=== PATIENT | male | born 1960 | race Two or more races ===

== ENCOUNTER 2023-08-14 06:05 | Day surgery (SDC) | payer BC ==
[~2023-08-14] VITALS: Ht 162.6 cm; Wt 103.9 kg
[~2023-08-14 06:05] MED LIST: ATOR10TA PO; CHOL20007 OR; LOSA100T58 PO; MELO7.5T7 PO; METF-370 PO
[2023-08-14] MEDS ORDERED: IOHEXOL 300 MG/ML 100ML BOTTLE IJ ONE (06:30)
[2023-08-14] MEDS ORDERED: ceFAZolin 2 GM/D5W100ml 100 ML IV ONE (06:42)
[2023-08-14] MEDS ORDERED: SUCCINYLCHOLINE CHLORIDE 20 MG/ML 10ML VIAL IV ONE (06:55)
[2023-08-14] MEDS ORDERED: ROCURONIUM 10MG/ML 10ML VIAL IV ONE (06:55)
[2023-08-14] MEDS ORDERED: fentaNYL CITRATE 100 MCG/2 ML VL ONE (06:57)
[2023-08-14] MEDS ORDERED: SODIUM CHLORIDE LOCK 10 ML ONE (06:58)
[2023-08-14] MEDS ORDERED: KETAMINE 50mg/ML 1ml syringe ONE (06:58)
[2023-08-14] MEDS ORDERED: DexAMETHasone SOD PHOS 10MG/1ML VIAL INJ ONE (06:58)
[2023-08-14] MEDS ORDERED: ONDANSETRON HCL 4 MG/2 ML VIAL ONE (06:58)
[2023-08-14] MEDS ORDERED: MEPERIDINE HCL (50 MG/ML) 1 ML VIAL ONE (06:58)
[2023-08-14] MEDS ORDERED: MIDAZOLAM HCL 2MG/2ML 2ml VIAL (1mg/ml) ONE (06:58)
[2023-08-14] MEDS ORDERED: PROPOFOL 10 MG/ML 20 ML IV ONE (06:58)
[2023-08-14 08:58] VITALS: O2SAT 96
[2023-08-14 09:01] VITALS: TEMP 97.4
[2023-08-14] MEDS ORDERED: HYDROmorphone HCL 2 MG/ML VL/or syr IV PRN (09:15)
[2023-08-14] MEDS ORDERED: MORPHINE SULFATE INJ 2 MG/ml SYRG IV PRN (09:15)
[2023-08-14] MEDS ORDERED: ACCU-CHEK COMFORT CURVE STRIP VI ONE (09:15)
[2023-08-14] MEDS ORDERED: METOCLOPRAMIDE HCL 5MG/ml INJ 2ml VIAL IV PRN (09:15)
[2023-08-14] MEDS ORDERED: KETOROLAC TROMETH 30 MG/ML 1ML VIAL IV ONE (09:15)
[2023-08-14] MEDS: HYDROmorphone HCL 2 MG/ML VL/or syr IV PRN (09:52)
[2023-08-14 12:15] VITALS: BP 169/88; PULSE 96; RESP 20; O2SAT 92
== END 2023-08-14 12:38 | disposition home or self-care (01) ==
LOC: SUR 06:05
PROVIDERS: ATTEND Orthopaedic Surgery
DX: S32.038A Other fracture of third lumbar vertebra, initial encounter for closed fracture (principal); S32.048A Other fracture of fourth lumbar vertebra, initial encounter for closed fracture; X58.XXXA Exposure to other specified factors, initial encounter; Y93.89 Activity, other specified; Y92.89 Other specified places as the place of occurrence of the external cause; Y99.8 Other external cause status; I10 Essential (primary) hypertension; E11.9 Type 2 diabetes mellitus without complications; G47.30 Sleep apnea, unspecified; E78.5 Hyperlipidemia, unspecified; M54.30 Sciatica, unspecified side; M51.34 Other intervertebral disc degeneration, thoracic region; Z79.899 Other long term (current) drug therapy; Z96.642 Presence of left artificial hip joint; Z98.890 Other specified postprocedural states; Z79.84 Long term (current) use of oral hypoglycemic drugs
CPT/HCPCS: 22514; 22515; 72100; 76000; 82962; 86850; 86900; 86901; C1713; J0330; J1100; J1170; J2175; J2250; J2405; J2704; J3010; Q9967

== ENCOUNTER 2024-08-20 09:00 | Emergency (ER) | payer BC ==
[~2024-08-20] VITALS: Ht 177.8 cm; Wt 113.0 kg
[~2024-08-20 09:00] MED LIST changes: +LOSA-535 PO; -LOSA100T58 PO
[2024-08-20] MEDS: ADENOSINE 6 MG/2 ML INJ IV ONE ×2 (09:20→10:51)
[2024-08-20 09:35] LABS: Basophils # (auto) 0 10 ^3/uL (0-0.2); Basophils % (auto) 0.4 % (0.0-2.0); Eosinophils # (auto) 0.1 10 ^3/uL (0-0.8); Eosinophils % (auto) 1.4 % (0.0-7.0); Hematocrit 47.9 % (41.0-53.0); Hemoglobin 15.9 g/dL (13.5-17.5); Lymphocytes # (auto) 2.2 10 ^3/uL (0.4-5.4); Lymphocytes % (auto) 27.3 % (10.0-50.0); Mean Corpuscular Hemoglobin 28.5 pg (28.0-32.0); Mean Corpuscular Hgb Conc. 33.1 g/dL (32.0-36.0); Monocytes # (auto) 0.6 10 ^3/uL (0-1.3); Monocytes % (auto) 7.2 % (0.0-12.0); Neutrophils # (auto) 5.2 10 ^3/uL (1.6-8.6); Neutrophils % (auto) 63.7 % (37.0-80.0); Platelet Count (auto) 219 10^3/uL (140-450); Red Blood Cells 5.57 10^6/uL (4.5-5.90); Red Cell Distribution Width 15.1 % (11.8-14.3); White Blood Cell 8.2 10^3/uL (4.4-10.8)
--- NOTE | 2024-08-20 09:36 | ED.PDOC ---
HPI Comments 64-year-old male with no reported PMHx presents with a chief complaint of A-Fib RVR x 10 minutes prior to arrival. Patient was at a pre-op surgery center when staff noticed that patients BPM was in the high 190s at rest. Patient denies any active chest pain, palpitations, SOB, headache, or nausea at this time. Patient reports that he feels relatively calm, smiling, laughing with EMS crew, and in no apparent distress at this time. Vasovagal maneuver at EMS [facility] side was unsuccessful. Patients EKG shows rate of 192, Wide-QRS Tachycardia, and RBBB. No other symptoms or modifying factors present at this time. Chief Complaint: Palpitations Time Seen by MD: 08:49 Reviewed Notes: Medications, Allergies Allergies: Coded Allergies: NO KNOWN ALLERGIES (Unverified , 08/08/23) Home Meds Reported Medications Cholecalciferol (VITAMIN D3) Unknown Strength Tab, OR, TAB 08/08/23 Metformin Hydrochloride (Metformin Hcl) 500 Mg Tab, 250 MG PO, TAB 24 Meloxicam (Meloxicam) 7.5 Mg Tab, 7.5 MG PO DAILY, TAB 08/08/23 Atorvastatin Calcium (Lipitor) 10 Mg Tab, 10 MG PO DAILY, TAB 08/08/23 Losartan Potassium (Losartan Potassium) 100 Mg Tab, 100 MG PO DAILY, TAB 08/08/23 Information Source: Patient, Emergency Med Personnel Mode of Arrival: EMS Severity: Moderate Timing: Minutes Duration: Since onset Prehospital treatment: 12 Lead EKG Onset: At Rest Cardiac Risk Factors: None PE Risk Factors: None History of: Angioplasty Past Medical History PAST MEDICAL HISTORY: Denies Surgical History: Denies all surgeries Family History Family History: Reviewed,noncontributory to illness Social History Smoker: Non-Smoker Alcohol: Denies ETOH Use Drugs: Denies Drug Use Lives In: Home Constitutional: denies: chills, diaphoresis, fatigue, fever, malaise, sweats, weakness, others EENTM: denies: blurred vision, double vision, ear bleeding, ear discharge, ear drainage, ear pain, ear ringing, eye pain, eye redness, hearing loss, mouth pain, mouth swelling, nasal discharge, nose bleeding, nose congestion, nose pain, photophobia, tearing, throat pain, throat swelling, voice changes, others Respiratory: denies: cough, hemoptysis, orthopnea, SOB at rest, shortness of breath, SOB with excertion, stridor, wheezing, others Cardiovascular: denies: chest pain, dizzy spells, diaphoresis, Dyspnea on exertion, edema, irregular heart beat, left arm pain, lightheadedness, palpitations, PND, syncope, others Gastrointestinal: denies: abdomen distended, abdominal pain, blood streaked bowels, constipated, diarrhea, dysphagia, difficulty swallowing, hematemesis, melena, nausea, poor appetite, poor fluid intake, rectal bleeding, rectal pain, vomiting, others Genitourinary: denies: burning, dysuria, flank pain, frequency, hematuria, incontinence, penile discharge, penile sore, pain, testicle pain, testicle swelling, urgency, others Neurological: denies: dizziness, fainting, headache, left sided numbness, left sided weakness, numbness, paresthesia, pre-existing deficit, right sided numbness, right sided weakness, seizure, speech problems, tingling, tremors, weakness, others Musculoskeletal: denies: back pain, gout, joint pain, joint swelling, muscle pain, muscle stiffness, neck pain, others Integumetry: denies: bruises, change in color, change in hair/nails, dryness, laceration, lesions, lumps, rash, wounds, others Allergic/Immunocompromised: denies: Difficulty Healing, Frequent Infections, Hives, Itching, others Hematologic/Lymphatic: denies: anemia, blood clots, easy bleeding, easy bruising, swollen glands, others Endocrine: denies: excessive hunger, excessive sweating, excessive thirst, excessive urination, flushing, intolerance to cold, intolerance to heat, unexplained weight gain, unexplained weight loss, others Psychiatric: denies: anxiety, bipolar disorder, depression, hopeless, panic disorder, schizophrenia, sleepless, suicidal, others All Other Systems: Reviewed and Negative Physical Exam General Appearance: No Apparent Distress, Obese HEENT: NOT DONE Neck: NOT DONE Respiratory: Chest Non-Tender, Lungs Clear, No Accessory Muscle Use, No Respiratory Distress, Normal Breath Sounds Cardiovascular: Tachycardia Breast Exam: Deferred Gastrointestinal: NOT DONE Genitalia: Deferred Pelvic: Deferred Rectal: Deferred Extremities: No calf tenderness, Normal capillary refill, Normal inspection, Normal range of motion, Non-tender, No pedal edema Neurologic: Alert, operating cost clerk II-XII nml as Tested, No Motor Deficits, Normal Affect, Normal Mood, No Sensory Deficits Cerebellar Function: Normal Reflexes: NOT DONE Skin: Dry, Normal Color Lymphatic: NOT DONE EKG EKG : Pulse Rate (adult): 192 [place]: Normal Cardiac Rhythm: ST Block: RBBB Hypertrophy: None ST: Normal Comments WIDE-QRS Tachycardia Was a procedure done? Was a procedure done?: Yes Sedation Sedation?: No Informed consent obtained: Yes Arterial Puncture Notes Name of procedure: Chemical cardioversion Indication: Atrial fibrillation with rapid ventricular response Description procedure: With the patient was supine position in left arm elevated, 6 mg of adenosine IV x1 followed by saline push he was provided the patient with the immediate cardioversion to normal sinus rhythm. The patient tolerated the procedure well. No complications. No EBL. CP Differential Dx Differential Diagnosis: A-fib, A-Flutter, Anxiety / Panic Attack, Atrial Dysrhythmia, AV Block 1st Degree, AV Block 2nd Degree, AV Block 3rd Degree, Digoxin Toxicity, Electrolyte Disorder, Heart Failure, Hyperthyroidism, Hyperventilation, MAT, Pulmonary Embolus, PVC's, Sinus Tachycardia, Tors[place] Pointes, V-Fib, V-Tach, WPW X-Ray, Labs, Meds, VS Vital Signs Date Time Temp Pulse Resp B/P (MAP) Pulse Ox O2 Delivery O2 Flow Rate FiO2 08/20/24 10:00 106 18 158/92 (114) 97 08/20/24 09:44 96 Nasal Cannula* 2 28 08/20/24 09:38 103 18 97 Nasal Cannula* 2 28 08/20/24 09:36 192 08/20/24 09:30 104 08/20/24 09:30 105 18 143/89 (107) 95 08/20/24 09:15 185 20 146/98 (114) 95 08/20/24 09:05 97.8 190 16 153/104 (120) 98 08/20/24 09:00 97.6 187 22 153/104 (120) 95 97.6 08/20/24 09:00 192 Lab Test 08/20/24 10:25 08/20/24 10:14 08/20/24 09:15 Range/Units Urine Color Colorless Yellow Urine Clarity Clear Clear Urine pH 7.0 5.0-9.0 Urine Specific [place] 1.006 1.001-1.035 Urine Protein Negative Negative Urine Ketones Negative Negative Urine Blood Negative Negative /uL Urine Nitrite Negative Negative Urine Bilirubin Negative Negative Urine Urobilinogen Normal Negative mg/dL Urine Leukocyte Esterase Negative Negative /uL Urine RBC 1 0 - 3 /hpf Urine Microscopic WBC Pending Urine Squamous Epithelial Cells None seen <5 /hpf Urine Bacteria None seen None Seen /hpf Urine Glucose Normal Normal mg/dL Troponin I High Sensitivity 4 3 L </=54 ng/L White Blood Count 8.2 4.4-10.8 10^3/uL Red Blood Count 5.57 4.5-5.90 10^6/uL Hemoglobin 15.9 13.5-17.5 g/dL Hematocrit 47.9 41.0-53.0 % Mean Corpuscular Volume 86.0 80.0-100.0 fL Mean Corpuscular Hemoglobin 28.5 28.0-32.0 pg Mean Corpuscular Hemoglobin Concent 33.1 32.0-36.0 g/dL Red Cell Distribution Width 15.1 H 11.8-14.3 % Platelet Count 219 140-450 10^3/uL Mean Platelet Volume 7.4 6.9-10.8 fL Neutrophils (%) (Auto) 63.7 37.0-80.0 % Lymphocytes (%) (Auto) 27.3 10.0-50.0 % Monocytes (%) (Auto) 7.2 0.0-12.0 % Eosinophils (%) (Auto) 1.4 0.0-7.0 % Basophils (%) (Auto) 0.4 0.0-2.0 % Neutrophils # (Auto) 5.2 1.6-8.6 10 ^3/uL Lymphocytes # (Auto) 2.2 0.4-5.4 10 ^3/uL Monocytes # (Auto) 0.6 0-1.3 10 ^3/uL Eosinophils # (Auto) 0.1 0-0.8 10 ^3/uL Basophils # (Auto) 0 0-0.2 10 ^3/uL Nucleated Red Blood Cells 0.0 % Prothrombin Time 10.8 9.3-11.8 sec Prothrombin Time INR 1.02 0.9-1.15 Activated Partial Thromboplast Time 29.3 24.5-34.5 SEC D-Dimer, Quantitative 0.56 H 0.0-0.49 mg/L FEU Sodium Level 139 136-145 mmol/L Potassium Level 4.0 3.5-5.1 mmol/L Chloride Level 106 98-107 mmol/L Carbon Dioxide Level 25 20-31 mmol/L Anion Gap 8 5-15 Blood Urea Nitrogen 10 9-23 mg/dL Creatinine 0.75 0.700-1.30 mg/dL Glomerular Filtration Rate Calc 100 >90 mL/min BUN/Creatinine Ratio 13.3 10.0-20.0 Serum Glucose 143 H 74-106 mg/dL Calcium Level 10.2 8.7-10.4 mg/dL Total Bilirubin 0.5 0.2-1.0 mg/dL Aspartate Amino Transferase (AST) 16 13-40 U/L Alanine Aminotransferase (ALT) 29 7-40 U/L Alkaline Phosphatase 132 H 46-116 U/L B-Type Natriuretic Peptide 19.35 0-100 pg/mL Total Protein 7.4 5.7-8.2 g/dL Albumin 4.5 3.2-4.8 g/dL Current Medications Medications (Trade) Dose Ordered Sig/Graciela Route Start Time Stop Time Status Last Admin Adenosine (Adenosine) 6 mg ONCE ONCE IV 08/20/24 09:15 08/20/24 09:16 DC 08/20/24 09:20 X-Ray, Labs, Meds, VS Comment This 56-year-old male presents secondary to EU to be AFib with RVR in the 190s. He was at a surgical center having injection for his chronic back pain when they noticed his elevated heart rate. He presents here asymptomatic. He states he feels well. The patient was I need to be converted using the vagal maneuver. However, with 6 mg IV x1 he spontaneously converted. He continues to do well for several hours. His troponin was negative. Workup otherwise was benign. As such, the patient was discharged home. He was asked to follow up with his PCP and Cardiology for further workup management of his SVT. Time of 1ST Reevaluation: 09:19 Reevaluation 1ST: Unchanged Patient Education/Counseling: Diagnosis, Treatment, Prognosis Family Education/Counseling: Diagnosis, Treatment, Prognosis Departure 1 Departure Time of Disposition: 11:45 Impression: Primary Impression: Atrial fibrillation by electrocardiography Additional Impression: Atrial fibrillation by electrocardiogram Disposition: 01 HOME / SELF CARE / HOMELESS Condition: Good Discharged With: Self Critical Care Note Critical Care Time?: Yes (35 min-critical care time only) Critical care comment: Total critical care time: Approximately 36 minutes Due to a high probability of clinically significant, life threatening deterioration, the patient required my highest level of preparedness to intervene emergently and I personally spent this critical care time directly and personally managing the patient. This critical care time included obtaining a history; examining the patient; pulse oximetry; ordering and review of studies; arranging urgent treatment with development of a management plan; evaluation of patient's response to treatment; frequent reassessment; and, discussions with other providers. This critical care time was performed to assess and manage the high probability of imminent, life-threatening deterioration that could result in multi-organ failure. It was exclusive of separately billable procedures and treating other patients and teaching time. Please see MDM section and the rest of the note for further information on patient assessment and treatment. Stability Stability form required: No Heart Score Heart Score: Heart Score Response (Comments) Value History N/A 0 EKG N/A 0 Age N/A 0 Risk Factors N/A 0 Troponin N/A 0 Total 0 I personally scribed for HUA BARRON MD ([email or web address]) on 08/20/24 at 09:36. Electronically submitted by Goldy Elliott ([email or web address]). HUA BARRON MD Aug 20, 2024 09:36
[2024-08-20 09:38] VITALS: PULSE 103; RESP 18; O2SAT 97
--- NOTE | 2024-08-20 09:45 | DVH ---
CHEST RADIOGRAPH Indication: chest pain Technique: Single frontal view of the chest was obtained Comparison: None FINDINGS: Lines and Tubes: None Lungs: No focal consolidation. Pleura: No effusion.No pneumothorax. Cardiomediastinal contours: Unremarkable Pulmonary vasculature: Within normal limits. Bones: No acute osseous abnormality. IMPRESSION: 1. No acute cardiopulmonary disease. HS:Y
[2024-08-20 09:48] LABS: Alanine Aminotransferase 29 U/L (7-40); Albumin 4.5 g/dL (3.2-4.8); Anion Gap 8 (5-15); Aspartate Aminotransferase 16 U/L (13-40); BUN/Creatinine Ratio 13.3 (10.0-20.0); Blood Urea Nitrogen 10 mg/dL (9-23); Calcium 10.2 mg/dL (8.7-10.4); Carbon Dioxide 25 mmol/L (20-31); Chloride 106 mmol/L (98-107); Sodium 139 mmol/L (136-145)
[2024-08-20 09:49] LABS: Alkaline Phosphatase 132 U/L (46-116); Bilirubin, Total 0.5 mg/dL (0.2-1.0); Glucose 143 mg/dL (74-106); Total Protein 7.4 g/dL (5.7-8.2)
[2024-08-20 10:11] LABS: INR 1.02 (0.9-1.15); Partial Thromboplastin Time 29.3 SEC (24.5-34.5); Prothrombin Time 10.8 sec (9.3-11.8)
[2024-08-20 10:31] LABS: Urine Bacteria None Seen /hpf (None Seen)
[2024-08-20] MEDS: dilTIAZem 25 MG/5 ML VIAL IV ONE (10:51)
[2024-08-20] MEDS: LOSARTAN POTASSIUM 50 MG TAB PO ONE (11:00)
[2024-08-20 11:12] LABS: Urine Blood Negative /uL (Negative); Urine Clarity Clear (Clear); Urine Color Colorless (Yellow); Urine Protein, UAD Negative (Negative); Urine Specific Gravity 1.006 (1.001-1.035); Urine Squamous Epithelial Cell None Seen /hpf (<5); Urine Urobilinogen Normal (Negative)
[2024-08-20 11:57] LABS: Urine WBC 1 /HPF (0-3)
[2024-08-20 12:00] VITALS: BP 143/90; PULSE 92; RESP 18; TEMP 97.7; O2SAT 97
--- NOTE | 2024-08-20 18:39 | ECG ---
[facility] Test Date: 2024-08-20 Test Time: 08:51:29 Pat Name: SALENA CARRENO Department: er Room: Gender: M Business Analyst: j : 1960 Requested By: HUA BARRON Order Number: [id number] Reading MD: Ron Frazier Measurements Intervals [place] Rate: 192 P: 0 GA: 0 QRS: 15 QRSD: 128 T: 4 QT: 275 QTc: 492 Interpretive Statements Wide-QRS tachycardia Right bundle branch block Artifact in lead(s) II,aVR,aVF Electronically Signed On 08-23-2024 8:21:19 PST by Ron Frazier Please click the below link to view image of tracing.
--- NOTE | 2024-08-23 15:19 | ECG ---
[facility] Test Date: 2024-08-20 Test Time: 09:30:47 Pat Name: SALENA CARRENO Department: ED Room: Gender: M Sawyer Helper: ED : 1960 Requested By: HUA BARRON Order Number: [id number] Reading MD: Ron Frazier Measurements Intervals [place] Rate: 104 P: 40 CT: 167 QRS: -6 QRSD: 140 T: 15 QT: 365 QTc: 481 Interpretive Statements Sinus tachycardia Right bundle branch block Electronically Signed On 08-26-2024 21:16:01 PST by Ron Frazier Please click the below link to view image of tracing.
== END 2024-08-20 12:13 | disposition home or self-care (01) ==
LOC: ER 09:00 → EDBD 09:00 → ER 12:13
DX: I48.91 Unspecified atrial fibrillation (principal); R06.02 Shortness of breath; Z79.84 Long term (current) use of oral hypoglycemic drugs; Z79.899 Other long term (current) drug therapy
CPT/HCPCS: 36415; 71045; 80053; 81001; 83880; 84484; 85025; 85379; 85610; 85730; 93005; 96374; 99291; J0153